=== PATIENT | female | born 1990 | race Caucasian/White ===

== ENCOUNTER 2022-03-22 07:53 | Emergency (ER) | payer OTHER ==
[2022-03-22] MEDS ORDERED: Morphine 4 MG/ML VIAL ONE (08:12)
[2022-03-22] MEDS ORDERED: Boostrix 0.5 ML (Tdap) VIAL ONE (08:12)
[2022-03-22] MEDS ORDERED: Ketorolac Tromethamine 30 MG/ML VIAL ONE (08:12)
[2022-03-22] MEDS ORDERED: Ondansetron ODT 4 MG TAB ONE (08:24)
[2022-03-22 08:29] LABS: #Basophils 0.1 10x3/uL (0.0-0.2); #Eosinphils 0.1 10x3/uL (0.0-0.5); #Monocytes 0.4 10x3/uL (0.0-1.1); #Neutrophils 5.4 10x3/uL (1.5-8.4); %Basophils 0.8 % (0.0-2.0); %Eosinophils 1.2 % (0.0-6.0); %Lymphocytes 21.9 % (18.0-47.0); %Monocytes 4.9 % (0.0-10.0); %Neutrophils 70.9 % (40.0-75.0); Hemoglobin 12.9 g/dL (12.0-15.5); Mean Corpuscular HGB CONC 33.3 g/dL (32.0-36.0); Mean Corpuscular Hemoglobin 30.3 pg (27.0-33.0); Mean Corpuscular Volume 90.8 fl (81.6-98.3); Mean Platelet Volume 10.3 fl (7.4-10.4); Platelet Count 284 10x3/uL (150-450); RBC Distribution Width 12.1 % (11.5-14.5); Red Blood Cell (RBC) Count 4.26 10x6/uL (3.90-5.03); White Blood Cell (WBC) Count 7.6 10x3/uL (3.5-10.5)
[2022-03-22 08:37] LABS: BHCG - Serum Negative (NEGATIVE); Pregs Control Background? CLEAR/WHITE (CLR/WHITE); Pregs Control Bar Appear? YES (CONTROL BAR)
[2022-03-22 08:39] LABS: INR-International Normal Ratio 0.9; PTT 22.8 sec (22.0-33.0); Prothrombin Time 9.8 sec (9.5-12.1)
[2022-03-22 08:44] LABS: ALT (SGPT) 36 U/L (8-55); AST (SGOT) 24 U/L (5-34); Albumin 3.9 g/dL (3.5-5.0); Alkaline Phosphatase 70 U/L (40-110); Anion Gap 17 mmol/L (10-20); BUN (Urea Nitrogen) 12 mg/dL (7.0-18.7); Bilirubin, Total 0.3 mg/dL (0.2-1.2); CK (CPK) 132 U/L (29-168); Calc. Creatinine Clearance 0 mL/min (70-130); Calcium 9.1 mg/dL (7.8-10.44); Carbon Dioxide 22 mmol/L (22-29); Chloride 107 mmol/L (98-107); Globulin 2.7 g/dL (2.4-3.5); Glucose 102 mg/dL (70-105); Potassium 4.3 mmol/L (3.5-5.1); Protein, Total 6.6 g/dL (6.0-8.3); Sodium 142 mmol/L (136-145)
[2022-03-22] MEDS ORDERED: Morphine 2 MG/ML VIAL ONE (10:46)
[2022-03-22] MEDS ORDERED: ceFAZolin 2 GM/Dextrose 50 ML IVPB ONE (10:46)
[2022-03-22] MEDS ORDERED: Lidocaine 1% w/Epinephrine 1:100K 20 ML VIAL ONE (11:16)
[2022-03-22] MEDS ORDERED: Iopamidol 300 61% 100 ML VIAL FS ONE (12:22)
== END 2022-03-22 11:56 | disposition home or self-care (01) ==
LOC: CSHERS 07:53
DX: S82.302A Unspecified fracture of lower end of left tibia, initial encounter for closed fracture (principal); S81.812A Laceration without foreign body, left lower leg, initial encounter; S81.811A Laceration without foreign body, right lower leg, initial encounter; X58.XXXA Exposure to other specified factors, initial encounter
CPT/HCPCS: 12002; 36415; 80053; 82550; 84703; 85025; 85610; 85730; 90471; 90715; 96372; 96374; 96375; J0690; J1885; J2270; Q0162; Q9967